=== PATIENT | male | born 1990 | race Caucasian/White ===

== ENCOUNTER 2016-04-16 00:06 | Emergency (ER) | payer OTHER ==
[~2016-04-16] VITALS: Ht 170.2 cm; Wt 80.0 kg
[2016-04-16 00:17] VITALS: BP 99/63; PULSE 68; RESP 20; TEMP 98; O2SAT 96
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
[2016-04-16] MEDS ORDERED: SODIUM CHLORIDE 0.9% FLUSH 5 ML FLUSH IVF PRN (00:30)
[2016-04-16 00:56] LABS: AUTOMATED NEUTROPHIL # 6.6 TH/MM3 (1.8-7.7); BASOPHIL # 0.1 TH/MM3 (0-0.2); BASOPHIL % 0.7 % (0.0-2.0); EOSINOPHIL # 0.2 TH/MM3 (0-0.4); EOSINOPHIL % 1.7 % (0.0-4.0); HEMATOCRIT 40.5 % (39.0-51.0); HEMO FLAGS DIFF FINAL; LYMPH % 23.7 % (9.0-44.0); LYMPHOCYTE # 2.4 TH/MM3 (1.0-4.8); MEAN CELL VOLUME 89.2 FL (80.0-100.0); MEAN CORPUSCULAR HEMOGLOBIN 30.4 PG (27.0-34.0); MEAN CORPUSCULAR HGB CONC 34.1 % (32.0-36.0); MONO % 8.9 % (0.0-8.0); PLATELET COUNT 290 TH/MM3 (150-450); RED BLOOD COUNT 4.54 MIL/MM3 (4.50-5.90); RED CELL DISTRIBUTION WIDTH 14.2 % (11.6-17.2); WHITE BLOOD COUNT 10.1 TH/MM3 (4.0-11.0)
[2016-04-16 01:09] LABS: ANION GAP 8 MEQ/L (5-15); BICARBONATE 28.4 MEQ/L (21.0-32.0); BLOOD UREA NITROGEN 9 MG/DL (7-18); CHLORIDE 105 MEQ/L (98-107); GLOMERULAR FILTRATION RATE 83 ML/MIN (>89); POTASSIUM 4.3 MEQ/L (3.5-5.1); SODIUM (NA) 141 MEQ/L (136-145)
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
[2016-04-16] MEDS ORDERED: ACETAMINOPHEN/HYDROcodone 325 MG/5 MG TAB PO ONE (02:15)
[2016-04-16 02:55] VITALS: BP 117/58; PULSE 62; RESP 16; O2SAT 99
== END 2016-04-16 03:02 ==
LOC: EDBD 00:06 → NEPC 00:06
DX: S29.9XXA Unspecified injury of thorax, initial encounter (principal); Y08.02XA Assault by strike by baseball bat, initial encounter; Y04.2XXA Assault by strike against or bumped into by another person, initial encounter; Y92.830 Public park as the place of occurrence of the external cause
CPT/HCPCS: 70450; 71020; 72125; 73030; 80048; 80320; 85025